=== PATIENT | male | born 1985 | race Caucasian/White ===

== ENCOUNTER 2019-05-16 13:02 | Emergency (ER) | payer BC, SELFPAY ==
[2019-05-16 13:06] VITALS: BP 137/84; PULSE 92; RESP 18; O2SAT 96; BMI 27.8
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
[2019-05-16] MEDS: HYDROcodone-acetaminophen 7.5-325 mg Tablet 1 TAB PO (15:27)
[2019-05-16] MEDS: fluorescein 1 mg Strip EYE-RIGHT (15:30)
[2019-05-16] MEDS: eye irrigation 30 mL Btl EYE-BOTH (15:30)
[2019-05-16] MEDS: tetracaine 0.5% Op Soln 4 mL Btl 1 DROP EYE-RIGHT (17:11)
[2019-05-16 17:26] VITALS: BP 126/74; PULSE 80; RESP 18; O2SAT 97
== END 2019-05-16 17:26 | disposition home or self-care (01) ==
PROVIDERS: Emergency Provider Physician Assistant
DX: S05.01XA Injury of conjunctiva and corneal abrasion without foreign body, right eye, initial encounter (principal); X58.XXXA Exposure to other specified factors, initial encounter; F17.200 Nicotine dependence, unspecified, uncomplicated
CPT/HCPCS: 99281; 99283

== ENCOUNTER → 2019-08-08 15:45 | Outpatient (BNVA) | payer BC, SELFPAY | PROVIDERS: Visit Provider Psychiatry & Neurology Psychiatry | DX: F90.9 Attention-deficit hyperactivity disorder, unspecified type (principal); F19.10 Other psychoactive substance abuse, uncomplicated; Z87.820 Personal history of traumatic brain injury | CPT/HCPCS: 90846 ==

== ENCOUNTER → 2019-09-10 07:42 | Outpatient (BNVA) | payer BC, SELFPAY | PROVIDERS: Visit Provider Nurse Practitioner Psychiatric/Mental Health | DX: F19.10 Other psychoactive substance abuse, uncomplicated (principal); F39 Unspecified mood [affective] disorder; F41.9 Anxiety disorder, unspecified; Z51.81 Encounter for therapeutic drug level monitoring | CPT/HCPCS: 99212 ==

== ENCOUNTER → 2019-09-11 11:15 | Outpatient (BNVA) | payer BC, SELFPAY | PROVIDERS: Visit Provider Nurse Practitioner Psychiatric/Mental Health | DX: Z51.81 Encounter for therapeutic drug level monitoring (principal); Z03.89 Encounter for observation for other suspected diseases and conditions ruled out | CPT/HCPCS: 80053; 80061; 80306; 83036; 85025 ==

== ENCOUNTER → 2019-10-11 08:06 | Outpatient (BNVA) | payer BC, SELFPAY | PROVIDERS: Visit Provider Nurse Practitioner Psychiatric/Mental Health | DX: F19.10 Other psychoactive substance abuse, uncomplicated (principal); F39 Unspecified mood [affective] disorder; Z87.820 Personal history of traumatic brain injury | CPT/HCPCS: 99213 ==

== ENCOUNTER → 2020-01-03 08:43 | Outpatient (BNVA) | payer BC, SELFPAY | PROVIDERS: Visit Provider Nurse Practitioner Psychiatric/Mental Health | DX: F19.10 Other psychoactive substance abuse, uncomplicated (principal); F39 Unspecified mood [affective] disorder; Z91.14 Patient's other noncompliance with medication regimen; Z65.3 Problems related to other legal circumstances; F41.0 Panic disorder [episodic paroxysmal anxiety] | CPT/HCPCS: 99212 ==

== ENCOUNTER 2020-03-12 12:50 | Emergency (ER) | payer BC, SELFPAY ==
[2020-03-12 13:07] VITALS: BP 138/70; PULSE 81; RESP 18; TEMP 36.4; O2SAT 99; BMI 25.1
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
[2020-03-12] MEDS: ketorolac 60 mg/2 mL INJ IM (14:58)
[2020-03-12] MEDS: tetanus-dipt-pertussis 0.5 mL SDV IM (14:59)
[2020-03-12 15:04] VITALS: BP 126/87; PULSE 80; RESP 14; O2SAT 99
== END 2020-03-12 15:05 | disposition home or self-care (01) ==
PROVIDERS: Emergency Provider Physician Assistant
DX: L03.115 Cellulitis of right lower limb (principal); S06.0X0A Concussion without loss of consciousness, initial encounter; F17.210 Nicotine dependence, cigarettes, uncomplicated; Z23 Encounter for immunization; W21.11XA Struck by baseball bat, initial encounter
CPT/HCPCS: 12345; 70450; 90715; 96372; 99281; 99283; J1885

== ENCOUNTER 2020-07-17 13:21 | Emergency (ER) | payer BC, SELFPAY ==
[2020-07-17 13:40] VITALS: BP 167/90; PULSE 69; RESP 18; TEMP 36.2; O2SAT 100; BMI 28.3
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
--- NOTE | 2020-07-17 14:20 | W.ED.HEATRA ---
Documented by User: Christiano Coles DO 07/18/20 16:20 HPI - Head Injury General: Chief complaint: Head Injury Stated complaint: FELL TRIMMING TREE: FACE/L HIP LAC,L SIDE PAIN Time Seen by Provider: 07/17/20 14:07 History of Present Illness: HPI Narrative: 35-year-old male who is using a bucket truck trimming some trees and he fell out of the tree. He states he is about 30 feet up he had some objects on the way down there was some loss of consciousness. His was present but cannot give much for details he is laceration above his right eye significant abrasion on his left hip. He notes that he had gross hematuria when he urinated after this event while in route to the hospital. Is complaining of some neck and shoulder pain on the left as well. MD Complaint: head injury and fall Onset (ago): minute(s) Mechanism of Injury: fall and work related injury Place: work Loss of Consciousness: yes Severity: moderate Quality: aching Associated symptoms: Reports confusion; Deny amnesia, nausea, neck pain, numbness, syncope, tingling, vertigo, visual changes, vomiting or weakness Review of Systems Const: Denies: fever(s), chills, body aches, change in appetite, fatigue or malaise ENMT: Denies: throat pain, ear or mastoid pain, nasal discharge or nasal congestion Card: Denies: syncope Resp: Denies: dyspnea, productive cough or non-productive cough GI: Denies: nausea or vomiting : Denies: flank pain, dysuria, urinary frequency or urinary urgency Musc: Denies: neck pain Skin/Breast: Denies: rash or pruritus Neuro: Reports: confusion; Denies: vertigo PFSH ED PFSH: Medical History (Updated 07/17/20 @ 17:10 by Christiano Coles DO) Unspecified episodic mood disorder Surgical History H/O sinus surgery History of ear surgery Social History Smoking and tobacco status: current every day smoker Physical Exam Const: COMMON NORMALS: no acute distress GENERAL APPEARANCE: cooperative and comfortable ORIENTATION/CONSCIOUSNESS: Yes awake, Yes oriented to person, Yes oriented to place and Yes oriented to time HENMT: COMMON NORMALS: normocephalic and hearing grossly normal bilaterally HEAD & SCALP: normocephalic OTHER: Full-thickness laceration to the right supraorbital ridge Neck/C-Spine: COMMON NORMALS: no JVD Resp: COMMON NORMALS: normal respiratory effort, No retractions, No use of accessory muscles and clear to auscultation bilaterally AUSCULTATION: clear to auscultation bilaterally Cardio: COMMON NORMALS: no JVD, regular rate, regular rhythm and No murmurs present (Cardio) RATE: regular rate RHYTHM: regular rhythm GI: COMMON NORMALS: Soft to palpation and No hepatosplenomegaly present AUSCULTATION: Yes normoactive bowel sounds PALPATION: Yes Soft to palpation, No Tenderness to palpation present (GI), No Guarding due to palpation present (GI) and Yes No hepatosplenomegaly present Extremity: COMMON NORMALS: normal to inspection, capillary refill normal, no clubbing, cyanosis or edema, no calf tenderness and no pedal edema Neuro: SENSORIUM/ORIENTATION: Yes oriented to person, Yes oriented to place and Yes oriented to time Skin: COMMON NORMALS: no rashes or lesions noted GENERAL SKIN EXAM: no rashes or lesions noted Course Vital Signs: Vital signs: Vital Signs Temperature 97.1 F L 07/17/20 13:40 Pulse Rate 98 07/17/20 17:30 Respiratory Rate 16 07/17/20 17:30 Blood Pressure 127/71 07/17/20 17:30 Pulse Oximetry 97 07/17/20 17:30 MDM - Head Injury MDM Narrative: Medical decision making narrative: Reviewed findings with the patient. Imaging negative. We will go and discharge patient home he reported hematuria but there is no blood in the urine diclofenac to use as needed follow-up as needed sutures out in 7 to 10 days. Lab Data: Labs: Lab Results 07/17/20 07/17/20 07/17/20 Range/Units 15:00 15:00 16:46 WBC 11.9 H (4.0-10.0) 10^3/ uL RBC 4.63 (4.1-5.3) 10^6/u L Hgb 13.4 (11.7-16.6) g/dL Hct 41.2 L (42.0-52.0) % MCV 89.0 (80-94) fL MCH 28.9 (28.0-34.0) pg MCHC 32.5 (30.0-36.0) g/dL RDW 13.6 (12.1-15.1) % Plt Count 205 (130-400) 10^3/c mm MPV 9.7 (7.4-10.4) fL Neut % (Auto) 68.1 % Lymph % (Auto) 20.0 % [place] % (Auto) 10.6 % Eos % (Auto) 0.6 % Baso % (Auto) 0.4 % Neut # (Auto) 8.11 H (1.8-7.7) 10^3/u L Lymph # (Auto) 2.4 (0.8-4.8) 10^3/u L [place] # (Auto) 1.3 H (0.2-0.9) 10^3/u L Eos # (Auto) 0.1 (0.0-0.8) 10^3/u L Baso # (Auto) 0.1 (0.0-0.1) 10^3/u L Nucleated RBC % (a uto) 0 % Nucleated RBCs # 0.0 /100WBC Sodium 142 (136-145) mmol/L Potassium 4.2 (3.5-5.1) mmol/L Chloride 104 (98-107) mmol/L Carbon Dioxide 28 (22-29) mmol/L Anion Gap 14.2 (5-19) BUN 13 (6-20) mg/dL Creatinine 1.0 (0.7-1.2) mg/dL GFR Calculation 85.5 L (90-130) mL/min Glucose 98 (65-115) mg/dL Calculated Osmolal ity 294 (285-295) mOsm/k g Calcium 9.2 (8.5-10.5) mg/dL Total Bilirubin 0.4 (0.15-1.2) mg/dL AST 46 H (0-40) U/L ALT 37 (0-41) U/L Alkaline Phosphata se 79 (40-130) IU/L Total Protein 7.9 (6.6-8.7) g/dL Albumin 5.0 (3.5-5.2) g/dL Globulin 2.9 (1.3-4.6) g/dL Urine Color Yellow (Yellow) Urine Appearance Hazy A (CLEAR) Urine pH 5 (5-7) Ur Specific Gravit y 1.015 (1.005-1.030) Urine Protein Neg (Negative) Urine Glucose (UA) Norm (Normal) Urine Ketones Negative (Negative) Urine Blood Neg (Negative) Urine Nitrate Negative (Negative) Urine Bilirubin Neg (Negative) Urine Urobilinogen Norm (Negative) mg/dL Ur Leukocyte Almita ase Negative (Negative) Urine RBC 0-4 H (0-2) /hpf Urine WBC None (0-5) /hpf Ur Squamous Epith Cells 0-4 H (0-5) /hpf Amorphous Sediment Not Reportable Urine Bacteria 1+ H (NONE) /hpf Hyaline Casts 25-40 H /lpf Discharge Plan Discharge Patient Disposition: Home Clinical Impression: Fall, Laceration Condition: Stable Prescriptions: New diclofenac sodium 75 mg tablet,delayed release (DR/EC) 75 mg PO Q12H PRN (Reason: pain) Qty: 20 RF: 0 Discharge Orders: Discharge ED (Routine); Ordered 07/17/20 Ordered By: Christiano Coles Patient Instructions: Opioid Safety Activity Restrictions/Additional Instructions: Sutures out in 5 to 7 days Coding Level of Care Code ED Sponsorship Coordinator for Chg Fwd Exam Comprehensive Documented by User: YOSELIN Jeffery 07/17/20 17:27 HPI - Head Injury General: Chief complaint: Head Injury Stated complaint: FELL TRIMMING TREE: FACE/L HIP LAC,L SIDE PAIN Time Seen by Provider: 07/17/20 14:07 PFSH ED PFSH: Medical History (Updated 07/17/20 @ 17:10 by Christiano Coles DO) Unspecified episodic mood disorder Surgical History H/O sinus surgery History of ear surgery Social History Smoking and tobacco status: current every day smoker Procedures Laceration Laceration 1: Site: face (rt eyebrow) Side (If applicable): right Size (cm): 2.5 Description: linear and stellate Depth: simple, single layer Local Anesthetic: lidocaine 1% and with epi Amount of anesthesia used (mL): 4 Pre-repair: wound explored, irrigated extensively, deep structures intact and extensive debridement Skin layer closed with: nylon Size (cm): 5-0 Number of sutures: 6 Technique: simple, interrupted Laceration 2: Site: other (lower left lateral torso) Side (If applicable): left Size (cm): 1 Description: linear Depth: simple, single layer and [id number] Local Anesthetic: lidocaine 1% and with epi Amount of anesthesia used (mL): 5 Pre-repair: wound explored, irrigated extensively, deep structures intact and extensive debridement Skin layer closed with: nylon Size (cm): other (2) Number of sutures: 2 Technique: simple, interrupted Course Vital Signs: Vital signs: Vital Signs Temperature 97.1 F L 07/17/20 13:40 Pulse Rate 98 07/17/20 17:30 Respiratory Rate 16 07/17/20 17:30 Blood Pressure 127/71 07/17/20 17:30 Pulse Oximetry 97 07/17/20 17:30 MDM - Head Injury Lab Data: Labs: Lab Results 07/17/20 07/17/20 07/17/20 Range/Units 15:00 15:00 16:46 WBC 11.9 H (4.0-10.0) 10^3/ uL RBC 4.63 (4.1-5.3) 10^6/u L Hgb 13.4 (11.7-16.6) g/dL Hct 41.2 L (42.0-52.0) % MCV 89.0 (80-94) fL MCH 28.9 (28.0-34.0) pg MCHC 32.5 (30.0-36.0) g/dL RDW 13.6 (12.1-15.1) % Plt Count 205 (130-400) 10^3/c mm MPV 9.7 (7.4-10.4) fL Neut % (Auto) 68.1 % Lymph % (Auto) 20.0 % [place] % (Auto) 10.6 % Eos % (Auto) 0.6 % Baso % (Auto) 0.4 % Neut # (Auto) 8.11 H (1.8-7.7) 10^3/u L Lymph # (Auto) 2.4 (0.8-4.8) 10^3/u L [place] # (Auto) 1.3 H (0.2-0.9) 10^3/u L Eos # (Auto) 0.1 (0.0-0.8) 10^3/u L Baso # (Auto) 0.1 (0.0-0.1) 10^3/u L Nucleated RBC % (a uto) 0 % Nucleated RBCs # 0.0 /100WBC Sodium 142 (136-145) mmol/L Potassium 4.2 (3.5-5.1) mmol/L Chloride 104 (98-107) mmol/L Carbon Dioxide 28 (22-29) mmol/L Anion Gap 14.2 (5-19) BUN 13 (6-20) mg/dL Creatinine 1.0 (0.7-1.2) mg/dL GFR Calculation 85.5 L (90-130) mL/min Glucose 98 (65-115) mg/dL Calculated Osmolal ity 294 (285-295) mOsm/k g Calcium 9.2 (8.5-10.5) mg/dL Total Bilirubin 0.4 (0.15-1.2) mg/dL AST 46 H (0-40) U/L ALT 37 (0-41) U/L Alkaline Phosphata se 79 (40-130) IU/L Total Protein 7.9 (6.6-8.7) g/dL Albumin 5.0 (3.5-5.2) g/dL Globulin 2.9 (1.3-4.6) g/dL Urine Color Yellow (Yellow) Urine Appearance Hazy A (CLEAR) Urine pH 5 (5-7) Ur Specific Gravit y 1.015 (1.005-1.030) Urine Protein Neg (Negative) Urine Glucose (UA) Norm (Normal) Urine Ketones Negative (Negative) Urine Blood Neg (Negative) Urine Nitrate Negative (Negative) Urine Bilirubin Neg (Negative) Urine Urobilinogen Norm (Negative) mg/dL Ur Leukocyte Almita ase Negative (Negative) Urine RBC 0-4 H (0-2) /hpf Urine WBC None (0-5) /hpf Ur Squamous Epith Cells 0-4 H (0-5) /hpf Amorphous Sediment Not Reportable Urine Bacteria 1+ H (NONE) /hpf Hyaline Casts 25-40 H /lpf Discharge Plan Discharge Patient Disposition: Home Clinical Impression: Fall, Laceration Condition: Stable Prescriptions: New diclofenac sodium 75 mg tablet,delayed release (DR/EC) 75 mg PO Q12H PRN (Reason: pain) Qty: 20 RF: 0 Discharge Orders: Discharge ED (Routine); Ordered 07/17/20 Ordered By: Christiano Coles Patient Instructions: Opioid Safety Activity Restrictions/Additional Instructions: Sutures out in 5 to 7 days Coding Level of Care Code ED Sponsorship Coordinator for Rickey Fwd Exam Comprehensive
[2020-07-17] MEDS: HYDROcodone-acetaminophen 5-325 mg Tablet 1 TAB PO (15:00)
[2020-07-17] MEDS: tetanus-dipt-pertussis 0.5 mL SDV IM (15:02)
[2020-07-17 15:05] VITALS: BP 127/77; PULSE 71; O2SAT 100
--- NOTE | 2020-07-17 15:18 | PC.NURSE ---
CHIEF OF HOSPITAL MEDICINE at bedside to do sutures. wounds cleaned with soup and water
[2020-07-17 15:20] LABS: Basophils # 0.1 10^3/uL (0.0-0.1); Basophils % 0.4 %; Eosinophils # 0.1 10^3/uL (0.0-0.8); Eosinophils % 0.6 %; Hematocrit 41.2 % (42.0-52.0); Hemoglobin 13.4 g/dL (11.7-16.6); Lymphocytes # 2.4 10^3/uL (0.8-4.8); Mean Corpuscular HGB Conc 32.5 g/dL (30.0-36.0); Mean Corpuscular Hemoglobin 28.9 pg (28.0-34.0); Mean Platelet Volume 9.7 fL (7.4-10.4); Monocytes # 1.3 10^3/uL (0.2-0.9); Monocytes % 10.6 %; Neutrophils # 8.11 10^3/uL (1.8-7.7); Neutrophils % 68.1 %; Nucleated Red Blood Cells % 0 %; Platelet Count 205 10^3/cmm (130-400); Red Blood Count 4.63 10^6/uL (4.1-5.3); Red Cell Distribution Width 13.6 % (12.1-15.1); White Blood Count 11.9 10^3/uL (4.0-10.0)
[2020-07-17 15:30] LABS: Alanine Aminotransferase 37 U/L (0-41); Alkaline Phosphatase 79 IU/L (40-130); Anion Gap 14.2 (5-19); Aspartate Amino Transferase 46 U/L (0-40); Blood Urea Nitrogen 13 mg/dL (6-20); Calcium 9.2 mg/dL (8.5-10.5); Carbon Dioxide 28 mmol/L (22-29); Chloride 104 mmol/L (98-107); Globulin 2.9 g/dL (1.3-4.6); Glomerular Filtration Rate 85.5 mL/min (90-130); Glucose 98 mg/dL (65-115); Osmolality Calculated 294 mOsm/kg (285-295); Potassium 4.2 mmol/L (3.5-5.1); Sodium 142 mmol/L (136-145); Total Bilirubin 0.4 mg/dL (0.15-1.2); Total Protein 7.9 g/dL (6.6-8.7)
[2020-07-17 16:56] LABS: Urine Appearance Hazy (CLEAR); Urine Color Yellow (Yellow)
[2020-07-17 16:57] LABS: Add Urine Microscopic? YES; Bilirubin Urine Neg (Negative); Blood Urine Neg (Negative); Glucose Urine UA Norm (Normal); Ketones Urine Negative (Negative); Leukocyte Esterase Urine Negative (Negative); Nitrate Urine Negative (Negative); Protein Urine Neg (Negative); Specific Gravity, Urine 1.015 (1.005-1.030); Urobilinogen Urine Norm (Negative); pH Urine 5 (5-7)
[2020-07-17 17:05] LABS: Hyaline Casts Urine 25-40 /lpf
[2020-07-17 17:06] LABS: Bacteria Urine 1+ /hpf; RBC Urine 0-4 /hpf (0-2); Squamous Epithelial Cell Urine 0-4 /hpf (0-5)
[2020-07-17 17:30] VITALS: BP 127/71; PULSE 98; RESP 16; O2SAT 97
--- NOTE | 2020-07-23 11:42 | PC.NURSE ---
F/U visit today to remove sutures from right eye brow and left lateral side. Site cleaned and removed 6 sutures on eyebrow. Not able to remove sutures on left lateral side. Dried hard scabs encased sutures. Advised to soften scab and return when the hard scab is softened.
== END 2020-07-17 17:32 | disposition home or self-care (01) ==
PROVIDERS: Emergency Provider Family Medicine
DX: S01.111A Laceration without foreign body of right eyelid and periocular area, initial encounter (principal); S31.114A Laceration without foreign body of abdominal wall, left lower quadrant without penetration into peritoneal cavity, initial encounter; F17.210 Nicotine dependence, cigarettes, uncomplicated; W14.XXXA Fall from tree, initial encounter; Z23 Encounter for immunization
CPT/HCPCS: 12001; 12011; 36415; 70450; 71250; 72125; 74176; 80053; 81001; 85025; 90471; 90715; 99283

== ENCOUNTER → 2020-07-29 09:07 | Outpatient (BNVA) | payer BC, SELFPAY | PROVIDERS: Visit Provider Nurse Practitioner Psychiatric/Mental Health | DX: F39 Unspecified mood [affective] disorder (principal); F19.10 Other psychoactive substance abuse, uncomplicated; Z79.899 Other long term (current) drug therapy; Z91.14 Patient's other noncompliance with medication regimen | CPT/HCPCS: 99214 ==

== ENCOUNTER 2020-07-29 19:52 | Inpatient (IN) | payer BC, SELFPAY ==
[2020-07-29 19:54] VITALS: BP 148/89; PULSE 84; RESP 16; TEMP 36.6; O2SAT 96; BMI 30.7
--- NOTE | 2020-07-29 20:16 | W.ED.PSYCH ---
Documented by User: Bakari Shannon MD 07/29/20 21:55 HPI - Psych General: Chief Complaint: Psychiatric Symptoms Stated Complaint: SI Time Seen by Provider: 07/29/20 20:07 Source: patient and old records reviewed Limitations: altered mental status History of Present Illness: HPI Narrative: 35-year-old male presents via EMS with report of alcohol intoxication, suicidal ideation and homicidal ideation. When asked open-ended questions such as how can we help you today he reports I do not know, you are supposed to be a doctor, why do not you tell me? When asked further open-ended questions he replies similarly. Therefore direct questions had to be asked. Patient reports he just got out of longterm about 2 weeks ago. He told me that he wants to kill me and everyone around him. When asked why, he states he just feels angry. He does not express any explicit plan on how he is going to do so. He reports since he got out of longterm he's been fucking, drinking, and bitching . Pt has abrasions to left hand knuckles and small laceration to right dorsal wrist (doesn't look intentional self inflicted). He is willing to take some medicine for his anger/agitation. Review of Systems General: Reports: ROS unobtainable due to medical condition PFSH ED PFSH: Medical History (Updated 07/29/20 @ 23:06 by Grover Lewis MD) Unspecified episodic mood disorder Surgical History H/O sinus surgery History of ear surgery Social History Smoking and tobacco status: current every day smoker Physical Exam Const: COMMON NORMALS: average body habitus, alert and well nourished EXAM LIMITATIONS: altered mental status (intoxicated clinically) GENERAL APPEARANCE: well developed, disheveled and lethargic; not cooperative ORIENTATION/CONSCIOUSNESS: Yes lethargic HENMT: COMMON NORMALS: normocephalic, atraumatic, external ears normal and Normal external nose present HEAD & SCALP: normal to inspection, normocephalic and atraumatic FACE & SINUS: face symmetric NOSE: Normal external nose present EXTERNAL EAR: Yes external ears normal MOUTH: lip normal; moist mucous membranes not abnormal and no muffled voice Eye: COMMON NORMALS: EOMs intact bilaterally and negative for conjunctivae normal (injected) GENERAL EYE: appearance normal, both eyes and all related structures CONJUNCTIVA: No conjunctivae normal (injected) SCLERA: sclerae normal EOM: Yes Nystagmus present Neck/C-Spine: COMMON NORMALS: no JVD GENERAL: Yes normal visual inspection and Yes trachea midline Resp: COMMON NORMALS: normal respiratory effort, No use of accessory muscles and clear to auscultation bilaterally EFFORT & INSPECTION: Yes able to speak in complete sentences and Yes symmetric chest movement AUSCULTATION: clear to auscultation bilaterally Cardio: COMMON NORMALS: no JVD, regular rate and regular rhythm RATE: regular rate RHYTHM: regular rhythm PERIPHERAL PULSES: radial pulses present GI: COMMON NORMALS: Soft to palpation INSPECTION: Yes normal to inspection PALPATION: Yes Soft to palpation, No Tenderness to palpation present (GI) and No Guarding due to palpation present (GI) Back/Pelvis: COMMON NORMALS: thoraco-lumbar ROM normal Extremity: COMMON NORMALS: normal to inspection GENERAL: Yes normal exam except as noted Neuro: COMMON NORMALS: moves all extremities, no focal motor deficits and no sensory deficits noted SENSORIUM/ORIENTATION: Yes alert and Yes lethargic Psych: APPEARANCE: Yes unkempt ATTITUDE: Yes uncooperative and Yes agitated ACTIVITY/MOTOR BEHAVIOR: Yes appropriate eye contact, Yes psychomotor slowing and Yes disorganized behavior SPEECH: Yes slurred MOOD & AFFECT: Yes Labile affect present THOUGHT PROCESS: Other thought process findings present (intoxicated--lets me direct conversation) THOUGHT CONTENT: Yes Suicidality present and Yes Homicidality present ATTENTION/CONCENTRATION: Yes attention grossly intact MEMORY/COGNITION: Yes memory grossly impaired INSIGHT: Poor insight present (Psych) JUDGEMENT: Poor judgement present (Psych) Skin: COMMON NORMALS: no rashes or lesions noted, turgor normal and no jaundice GENERAL SKIN EXAM: no rashes or lesions noted and turgor normal Face to Face: Restrn/Seclusion Events leading up to initiation: Verbalizing threat to self or others Evaluation of patient's immediate situation: No signs of physical distress Patient reaction since intervention applied: De-escalation/no displays of violent/destructive behavior Course Vital Signs: Vital signs: Vital Signs Temperature 97.9 F 07/29/20 19:54 Pulse Rate 70 07/29/20 22:34 Respiratory Rate 16 07/29/20 19:54 Blood Pressure 108/67 07/29/20 22:34 Pulse Oximetry 97 07/29/20 22:34 MDM - Psych MDM Narrative: Medical decision making narrative: This is a clinically intoxicated 35-year-old male with a history of substance abuse and psychiatric disease. He has vague suicidal and homicidal statements. During my conversation with him I can actually get him to laugh and lighten his mood. He is so intoxicated now that I cannot rely on his history. Patient is willing to cooperate with blood work and to take a medication for anxiolysis. As long as the patient remains cooperative will review labs and allow him to metabolize and reassess. Lab Data: Labs: Lab Results 07/29/20 07/29/20 07/29/20 Range/Units 20:03 20:03 20:15 WBC 8.0 (4.0-10.0) 10^3/ uL RBC 4.17 (4.1-5.3) 10^6/u L Hgb 12.5 (11.7-16.6) g/dL Hct 37.2 L (42.0-52.0) % MCV 89.2 (80-94) fL MCH 30.0 (28.0-34.0) pg MCHC 33.6 (30.0-36.0) g/dL RDW 13.6 (12.1-15.1) % Plt Count 218 (130-400) 10^3/c mm MPV 10.0 (7.4-10.4) fL Neut % (Auto) 66.6 % Lymph % (Auto) 21.9 % [place] % (Auto) 8.7 % Eos % (Auto) 0.9 % Baso % (Auto) 0.5 % Neut # (Auto) 5.36 (1.8-7.7) 10^3/u L Lymph # (Auto) 1.8 (0.8-4.8) 10^3/u L [place] # (Auto) 0.7 (0.2-0.9) 10^3/u L Eos # (Auto) 0.1 (0.0-0.8) 10^3/u L Baso # (Auto) 0.0 (0.0-0.1) 10^3/u L Nucleated RBC % (a uto) 0 % Nucleated RBCs # 0.0 /100WBC Sodium (136-145) mmol/L Potassium (3.5-5.1) mmol/L Chloride (98-107) mmol/L Carbon Dioxide (22-29) mmol/L Anion Gap (5-19) BUN (6-20) mg/dL Creatinine (0.7-1.2) mg/dL GFR Calculation (90-130) mL/min Glucose (65-115) mg/dL Calculated Osmolal ity (285-295) mOsm/k g Calcium (8.5-10.5) mg/dL Total Bilirubin (0.15-1.2) mg/dL AST (0-40) U/L ALT (0-41) U/L Alkaline Phosphata se (40-130) IU/L Total Protein (6.6-8.7) g/dL Albumin (3.5-5.2) g/dL Globulin (1.3-4.6) g/dL Urine Color Yellow (Yellow) Urine Appearance Clear (CLEAR) Urine pH 5 (5-7) Ur Specific Gravit y 1.005 (1.005-1.030) Urine Protein Neg (Negative) Urine Glucose (UA) Norm (Normal) Urine Ketones Negative (Negative) Urine Blood Neg (Negative) Urine Nitrate Negative (Negative) Urine Bilirubin Neg (Negative) Urine Urobilinogen Norm (Negative) mg/dL Ur Leukocyte Almita ase Negative (Negative) Salicylates (3-10) mg/dL Urine Opiates Scre en Negative (Negative) ng/mL Acetaminophen (10-30) ug/mL Ur Barbiturates Sc reen Negative (Negative) ng/mL Ur Phencyclidine S crn Negative (Negative) ng/mL Ur Amphetamines Sc reen Negative (Negative) ng/mL U Benzodiazepines Scrn Negative (Negative) ng/mL Urine Cocaine Scre en Negative (Negative) ng/mL U Marijuana (THC) Screen Negative (Negative) ng/mL Ethyl Alcohol (0-10) mg/dL 07/29/20 Range/Units 20:15 WBC (4.0-10.0) 10^3/ uL RBC (4.1-5.3) 10^6/u L Hgb (11.7-16.6) g/dL Hct (42.0-52.0) % MCV (80-94) fL MCH (28.0-34.0) pg MCHC (30.0-36.0) g/dL RDW (12.1-15.1) % Plt Count (130-400) 10^3/c mm MPV (7.4-10.4) fL Neut % (Auto) % Lymph % (Auto) % [place] % (Auto) % Eos % (Auto) % Baso % (Auto) % Neut # (Auto) (1.8-7.7) 10^3/u L Lymph # (Auto) (0.8-4.8) 10^3/u L [place] # (Auto) (0.2-0.9) 10^3/u L Eos # (Auto) (0.0-0.8) 10^3/u L Baso # (Auto) (0.0-0.1) 10^3/u L Nucleated RBC % (a uto) % Nucleated RBCs # /100WBC Sodium 138 (136-145) mmol/L Potassium 4.0 (3.5-5.1) mmol/L Chloride 105 (98-107) mmol/L Carbon Dioxide 25 (22-29) mmol/L Anion Gap 12.0 (5-19) BUN 9 (6-20) mg/dL Creatinine 0.7 (0.7-1.2) mg/dL GFR Calculation 129.1 (90-130) mL/min Glucose 120 H (65-115) mg/dL Calculated Osmolal ity 286 (285-295) mOsm/k g Calcium 8.3 L (8.5-10.5) mg/dL Total Bilirubin 0.2 (0.15-1.2) mg/dL AST 28 (0-40) U/L ALT 35 (0-41) U/L Alkaline Phosphata se 89 (40-130) IU/L Total Protein 6.7 (6.6-8.7) g/dL Albumin 4.2 (3.5-5.2) g/dL Globulin 2.5 (1.3-4.6) g/dL Urine Color (Yellow) Urine Appearance (CLEAR) Urine pH (5-7) Ur Specific Gravit y (1.005-1.030) Urine Protein (Negative) Urine Glucose (UA) (Normal) Urine Ketones (Negative) Urine Blood (Negative) Urine Nitrate (Negative) Urine Bilirubin (Negative) Urine Urobilinogen (Negative) mg/dL Ur Leukocyte Almita ase (Negative) Salicylates < 0.3 L (3-10) mg/dL Urine Opiates Scre en (Negative) ng/mL Acetaminophen < 5.0 L (10-30) ug/mL Ur Barbiturates Sc reen (Negative) ng/mL Ur Phencyclidine S crn (Negative) ng/mL Ur Amphetamines Sc reen (Negative) ng/mL U Benzodiazepines Scrn (Negative) ng/mL Urine Cocaine Scre en (Negative) ng/mL U Marijuana (THC) Screen (Negative) ng/mL Ethyl Alcohol 258 H (0-10) mg/dL Discharge Plan Discharge Patient Disposition: Admitted As Inpatient Clinical Impression: Suicidal ideation Alcohol intoxication Qualifiers: Complication of substance-induced condition: with delirium Qualified Code(s): F10.921 - Alcohol use, unspecified with intoxication delirium Condition: Stable Coding Level of Care Code ED Geoscience Specialist for Chg Fwd Exam Comprehensive Documented by User: Grover Lewis MD 07/29/20 23:10 HPI - Psych General: Chief Complaint: Psychiatric Symptoms Stated Complaint: SI Time Seen by Provider: 07/29/20 20:07 [facility] ED PFSH: Medical History (Updated 07/29/20 @ 23:06 by Grover Lewis MD) Unspecified episodic mood disorder Surgical History H/O sinus surgery History of ear surgery Social History Smoking and tobacco status: current every day smoker Course Vital Signs: Vital signs: Vital Signs Temperature 97.9 F 07/29/20 19:54 Pulse Rate 70 07/29/20 22:34 Respiratory Rate 16 07/29/20 19:54 Blood Pressure 108/67 07/29/20 22:34 Pulse Oximetry 97 07/29/20 22:34 MDM - Psych MDM Narrative: Medical decision making narrative: Patient presents for suicidal homicidal ideations along with alcohol tox Acacian. Patient placed on a 96-hour hold and I spoke to psychiatrist and I will admit. Patient has been stable while here. Lab Data: Labs: Lab Results 07/29/20 07/29/20 07/29/20 Range/Units 20:03 20:03 20:15 WBC 8.0 (4.0-10.0) 10^3/ uL RBC 4.17 (4.1-5.3) 10^6/u L Hgb 12.5 (11.7-16.6) g/dL Hct 37.2 L (42.0-52.0) % MCV 89.2 (80-94) fL MCH 30.0 (28.0-34.0) pg MCHC 33.6 (30.0-36.0) g/dL RDW 13.6 (12.1-15.1) % Plt Count 218 (130-400) 10^3/c mm MPV 10.0 (7.4-10.4) fL Neut % (Auto) 66.6 % Lymph % (Auto) 21.9 % [place] % (Auto) 8.7 % Eos % (Auto) 0.9 % Baso % (Auto) 0.5 % Neut # (Auto) 5.36 (1.8-7.7) 10^3/u L Lymph # (Auto) 1.8 (0.8-4.8) 10^3/u L [place] # (Auto) 0.7 (0.2-0.9) 10^3/u L Eos # (Auto) 0.1 (0.0-0.8) 10^3/u L Baso # (Auto) 0.0 (0.0-0.1) 10^3/u L Nucleated RBC % (a uto) 0 % Nucleated RBCs # 0.0 /100WBC Sodium (136-145) mmol/L Potassium (3.5-5.1) mmol/L Chloride (98-107) mmol/L Carbon Dioxide (22-29) mmol/L Anion Gap (5-19) BUN (6-20) mg/dL Creatinine (0.7-1.2) mg/dL GFR Calculation (90-130) mL/min Glucose (65-115) mg/dL Calculated Osmolal ity (285-295) mOsm/k g Calcium (8.5-10.5) mg/dL Total Bilirubin (0.15-1.2) mg/dL AST (0-40) U/L ALT (0-41) U/L Alkaline Phosphata se (40-130) IU/L Total Protein (6.6-8.7) g/dL Albumin (3.5-5.2) g/dL Globulin (1.3-4.6) g/dL Urine Color Yellow (Yellow) Urine Appearance Clear (CLEAR) Urine pH 5 (5-7) Ur Specific Gravit y 1.005 (1.005-1.030) Urine Protein Neg (Negative) Urine Glucose (UA) Norm (Normal) Urine Ketones Negative (Negative) Urine Blood Neg (Negative) Urine Nitrate Negative (Negative) Urine Bilirubin Neg (Negative) Urine Urobilinogen Norm (Negative) mg/dL Ur Leukocyte Almita ase Negative (Negative) Salicylates (3-10) mg/dL Urine Opiates Scre en Negative (Negative) ng/mL Acetaminophen (10-30) ug/mL Ur Barbiturates Sc reen Negative (Negative) ng/mL Ur Phencyclidine S crn Negative (Negative) ng/mL Ur Amphetamines Sc reen Negative (Negative) ng/mL U Benzodiazepines Scrn Negative (Negative) ng/mL Urine Cocaine Scre en Negative (Negative) ng/mL U Marijuana (THC) Screen Negative (Negative) ng/mL Ethyl Alcohol (0-10) mg/dL 07/29/20 Range/Units 20:15 WBC (4.0-10.0) 10^3/ uL RBC (4.1-5.3) 10^6/u L Hgb (11.7-16.6) g/dL Hct (42.0-52.0) % MCV (80-94) fL MCH (28.0-34.0) pg MCHC (30.0-36.0) g/dL RDW (12.1-15.1) % Plt Count (130-400) 10^3/c mm MPV (7.4-10.4) fL Neut % (Auto) % Lymph % (Auto) % [place] % (Auto) % Eos % (Auto) % Baso % (Auto) % Neut # (Auto) (1.8-7.7) 10^3/u L Lymph # (Auto) (0.8-4.8) 10^3/u L [place] # (Auto) (0.2-0.9) 10^3/u L Eos # (Auto) (0.0-0.8) 10^3/u L Baso # (Auto) (0.0-0.1) 10^3/u L Nucleated RBC % (a uto) % Nucleated RBCs # /100WBC Sodium 138 (136-145) mmol/L Potassium 4.0 (3.5-5.1) mmol/L Chloride 105 (98-107) mmol/L Carbon Dioxide 25 (22-29) mmol/L Anion Gap 12.0 (5-19) BUN 9 (6-20) mg/dL Creatinine 0.7 (0.7-1.2) mg/dL GFR Calculation 129.1 (90-130) mL/min Glucose 120 H (65-115) mg/dL Calculated Osmolal ity 286 (285-295) mOsm/k g Calcium 8.3 L (8.5-10.5) mg/dL Total Bilirubin 0.2 (0.15-1.2) mg/dL AST 28 (0-40) U/L ALT 35 (0-41) U/L Alkaline Phosphata se 89 (40-130) IU/L Total Protein 6.7 (6.6-8.7) g/dL Albumin 4.2 (3.5-5.2) g/dL Globulin 2.5 (1.3-4.6) g/dL Urine Color (Yellow) Urine Appearance (CLEAR) Urine pH (5-7) Ur Specific Gravit y (1.005-1.030) Urine Protein (Negative) Urine Glucose (UA) (Normal) Urine Ketones (Negative) Urine Blood (Negative) Urine Nitrate (Negative) Urine Bilirubin (Negative) Urine Urobilinogen (Negative) mg/dL Ur Leukocyte Almita ase (Negative) Salicylates < 0.3 L (3-10) mg/dL Urine Opiates Scre en (Negative) ng/mL Acetaminophen < 5.0 L (10-30) ug/mL Ur Barbiturates Sc reen (Negative) ng/mL Ur Phencyclidine S crn (Negative) ng/mL Ur Amphetamines Sc reen (Negative) ng/mL U Benzodiazepines Scrn (Negative) ng/mL Urine Cocaine Scre en (Negative) ng/mL U Marijuana (THC) Screen (Negative) ng/mL Ethyl Alcohol 258 H (0-10) mg/dL Discharge Plan Discharge Patient Disposition: Admitted As Inpatient Clinical Impression: Suicidal ideation Alcohol intoxication Qualifiers: Complication of substance-induced condition: with delirium Qualified Code(s): F10.921 - Alcohol use, unspecified with intoxication delirium Condition: Stable Coding Level of Care Code ED Geoscience Specialist for Rickey Fwjosé miguel Exam Comprehensive
[2020-07-29 20:22] LABS: Add Urine Microscopic? NO; Charge for UA Resulting for Rev
[2020-07-29 20:24] LABS: Bilirubin Urine Neg (Negative); Blood Urine Neg (Negative); Glucose Urine UA Norm (Normal); Ketones Urine Negative (Negative); Leukocyte Esterase Urine Negative (Negative); Nitrate Urine Negative (Negative); Protein Urine Neg (Negative); Specific Gravity, Urine 1.005 (1.005-1.030); Urine Appearance Clear (CLEAR); Urine Color Yellow (Yellow); Urobilinogen Urine Norm (Negative); pH Urine 5 (5-7)
[2020-07-29 20:27] LABS: Basophils % 0.5 %; Eosinophils # 0.1 10^3/uL (0.0-0.8); Eosinophils % 0.9 %; Hematocrit 37.2 % (42.0-52.0); Hemoglobin 12.5 g/dL (11.7-16.6); Lymphocytes # 1.8 10^3/uL (0.8-4.8); Lymphocytes % 21.9 %; Mean Corpuscular HGB Conc 33.6 g/dL (30.0-36.0); Mean Corpuscular Volume 89.2 fL (80-94); Monocytes # 0.7 10^3/uL (0.2-0.9); Monocytes % 8.7 %; Neutrophils # 5.36 10^3/uL (1.8-7.7); Neutrophils % 66.6 %; Nucleated Red Blood Cells % 0 %; Platelet Count 218 10^3/cmm (130-400); Red Blood Count 4.17 10^6/uL (4.1-5.3); Red Cell Distribution Width 13.6 % (12.1-15.1)
[2020-07-29] MEDS: OLANZapine 10 mg ODT PO (20:27)
[2020-07-29 20:32] LABS: Amphetamines Screen Urine Negative (Negative); Barbiturates Screen Urine Negative (Negative); Benzodiazepines Screen Urine Negative (Negative); Cocaine Screen Urine Negative (Negative); Opiate Screen Urine Negative (Negative); PCP Screen Urine Negative (Negative); THC Screen Urine Negative (Negative)
[2020-07-29 20:42] LABS: Alanine Aminotransferase 35 U/L (0-41); Albumin Level 4.2 g/dL (3.5-5.2); Alcohol Level 258 mg/dL (0-10); Alkaline Phosphatase 89 IU/L (40-130); Aspartate Amino Transferase 28 U/L (0-40); Blood Urea Nitrogen 9 mg/dL (6-20); Calcium 8.3 mg/dL (8.5-10.5); Carbon Dioxide 25 mmol/L (22-29); Chloride 105 mmol/L (98-107); Globulin 2.5 g/dL (1.3-4.6); Glomerular Filtration Rate 129.1 mL/min (90-130); Glucose 120 mg/dL (65-115); Osmolality Calculated 286 mOsm/kg (285-295); Sodium 138 mmol/L (136-145); Total Bilirubin 0.2 mg/dL (0.15-1.2); Total Protein 6.7 g/dL (6.6-8.7)
[2020-07-29 20:43] LABS: Acetaminophen < 5.0 ug/mL (10-30); Salicylate < 0.3 mg/dL (3-10)
[2020-07-29 21:20] VITALS: BP 102/62; PULSE 70; O2SAT 96
[2020-07-29 22:34] VITALS: BP 108/67; PULSE 70; O2SAT 97
--- NOTE | 2020-07-29 22:42 | PC.NURSE ---
PSA states pt walked to corner of room and urinated in the floor. PSA stated that she tried to ask pt if he needed anything prior to this but pt would not acknowledge her
[2020-07-30 00:04] LABS: Alcohol Level 183 mg/dL (0-10)
[2020-07-30 00:57] VITALS: RESP 16
[2020-07-30 01:04] VITALS: BP 108/67; PULSE 70; RESP 16; TEMP 36.6
[2020-07-30] MEDS: acetaminophen 325 mg Tablet 650 MG PO (01:25)
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
[2020-07-30 06:00] VITALS: BP 112/65; PULSE 102; RESP 18; TEMP 36.4; O2SAT 96
[2020-07-30] MEDS: multivitamin therapeutic Tablet 1 TAB PO (08:40)
[2020-07-30] MEDS: thiamine 100 mg Tablet PO (08:40)
[2020-07-30] MEDS: folic acid 1 mg Tablet PO (08:40)
[2020-07-30 14:00] VITALS: BP 122/77; PULSE 75; RESP 16; TEMP 37.1; O2SAT 97
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
[2020-07-30 20:21] VITALS: BP 131/80; PULSE 80; RESP 17; TEMP 36.4; O2SAT 93
[2020-07-31 06:00] VITALS: BP 122/72; PULSE 77; RESP 17; TEMP 37.2; O2SAT 97
[2020-07-31] MEDS: folic acid 1 mg Tablet PO (08:28)
[2020-07-31] MEDS: multivitamin therapeutic Tablet 1 TAB PO (08:28)
[2020-07-31] MEDS: thiamine 100 mg Tablet PO (08:28)
[2020-07-31 14:00] VITALS: BP 131/84; PULSE 111; RESP 20; TEMP 36.9; O2SAT 96
--- NOTE | 2020-07-31 15:55 | PM.NPN ---
Subjective NPU Subjective: Interval history: Patient continues to state that he does not recall making suicidal or homicidal statements while intoxicated and denies any interval suicidal or homicidal ideation He denies any interval mood symptoms, denies any depressive symptoms although he does report some irritability about still being in the hospital and would like to leave Denies any problems with sleep Reports that his appetite is been good Continues to have poor insight and does not understand need for post discharge treatment although he does understand that he may benefit from alcohol and substance counseling Per staff report, no interval behavioral disturbances Mental Status Exam MSE Comments: Sitting up on his bed, shaved head, powell look on his face, cooperative with interview although only providing brief responses, good eye contact, tattoos uncovered skin areas Psychomotor activity is neither increased nor decreased, no agitation Speech is normal rate and volume, spontaneous, fair articulation, not pressured I am fine, somewhat constricted affect, not labile Alert and oriented to person, place, time Memory and concentration appear to be fair to intact per interview Thought process, linear, no flight of ideas Thought content, no delusions, no hallucinations, no suicidal or homicidal ideation Insight and judgment appear to be fair Vitals/I&O/Wt Last Vital Signs Temp 98.9 F 07/31/20 06:00 Pulse 77 07/31/20 06:00 Resp 17 07/31/20 06:00 BP 122/72 07/31/20 06:00 Pulse Ox 97 07/31/20 06:00 Weight last 48 hrs Weight 99.79 kg Data NPU : 07/29/20 20:15 07/29/20 20:15 A&P Assessment and plan (1) Alcohol intoxication: Status: Acute Qualifiers: Complication of substance-induced condition: with delirium Qualified Code(s): F10.921 - Alcohol use, unspecified with intoxication delirium (2) Suicidal ideation: Status: Acute (3) Problems related to other legal circumstances: Status: Chronic (4) Unspecified episodic mood disorder: Status: Chronic (5) History of concussion: Status: Acute (6) Polysubstance abuse: Status: Chronic Additional A&P Information Denies any interval suicidal or homicidal ideation and denies any interval depressive symptoms, reports some irritability, denies any psychotic symptoms although he does report prior to coming to the hospital that he was paranoid while intoxicated but does not currently have any paranoia CONTINUE current treatment, continue to monitor Involuntary Hold Information 96 Hour Hold: 96 Hour Involuntary Admission: Yes 96 Hour Hold Ending Date: 08/04/20 96 Hour Hold Ending Time: 23:03 Attestations NPU Medical Necessity Statement*: Patient continues to be on 96-hour hold for observation for any potential suicidal or homicidal ideation as well as coordination for safe discharge Coding Level of Care Code Acute Operations Inspector for Rickey Fwd Diagnoses Alcohol intoxication F10.921 Complication of substance-induced condition: with delirium Suicidal ideation R45.851 Problems related to other legal circumstances Z65.3 Unspecified episodic mood disorder F39 History of concussion Z87.820 Polysubstance abuse F19.10
[2020-07-31 20:32] VITALS: BP 107/60; PULSE 80; RESP 16; TEMP 36.9; O2SAT 96
[2020-08-01 05:38] VITALS: BP 96/62; PULSE 56; RESP 16; TEMP 36.7; O2SAT 97
[2020-08-01] MEDS: multivitamin therapeutic Tablet 1 TAB PO (08:06)
[2020-08-01] MEDS: thiamine 100 mg Tablet PO (08:06)
[2020-08-01] MEDS: folic acid 1 mg Tablet PO (08:06)
--- NOTE | 2020-08-01 08:58 | PC.RESP ---
SMOKING CESSATION INFORMATION SENT TO PATIENT.
[2020-08-01 14:00] VITALS: BP 126/89; PULSE 85; RESP 18; TEMP 36.8; O2SAT 96
--- NOTE | 2020-08-01 14:31 | P.PN_ITS ---
Subjective NPU Subjective: Interval history: Patient denies any interval mood symptoms, denies any depressive symptoms, denies any interval suicidal ideation Continues to report some irritability Continues to have poor insight into the events leading to his hospitalization as well as need for post discharge care Per staff report, no interval behavioral disturbances Mental Status Exam MSE Comments: Irritable but cooperative with interview, appropriately groomed and dressed, wearing hospital scrubs, good eye contact Psychomotor activity is neither increased nor decreased, no agitation Speech is normal rate and volume, spontaneous, fair articulation, not pressured I feel okay, full range, not labile Alert and oriented to person, place, time Memory and concentration appear to be fair to intact per interview Thought process, linear, no flight of ideas Thought content, no delusions, no hallucinations, no suicidal or homicidal ideation Insight and judgment appear to be fair Vitals/I&O/Wt Last Vital Signs Temp 98.1 F 08/01/20 05:38 Pulse 56 L 08/01/20 05:38 Resp 16 08/01/20 05:38 BP 96/62 08/01/20 05:38 Pulse Ox 97 08/01/20 05:38 Data NPU : 07/29/20 20:15 07/29/20 20:15 A&P Assessment and plan (1) Alcohol intoxication: Status: Acute Qualifiers: Complication of substance-induced condition: with delirium Qualified Code(s): F10.921 - Alcohol use, unspecified with intoxication delirium (2) Suicidal ideation: Status: Acute (3) Problems related to other legal circumstances: Status: Chronic (4) Unspecified episodic mood disorder: Status: Chronic (5) History of concussion: Status: Acute (6) Polysubstance abuse: Status: Chronic Additional A&P Information Patient continues to lack insight into the events leading to his hospitalization with concerns about untreated mood likely posing safety concerns and would benefit from continued observation for any return of suicidal or homicidal ideation. 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
[2020-08-01] MEDS: quetiapine XR (24HR) 50 mg Tablet 150 MG PO (20:15)
[2020-08-01 21:46] VITALS: BP 131/86; PULSE 74; RESP 17; TEMP 37; O2SAT 96
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
[2020-08-02 06:00] VITALS: BP 100/66; PULSE 68; RESP 16; TEMP 36.9
[2020-08-02] MEDS: multivitamin therapeutic Tablet 1 TAB PO (08:08)
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
[2020-08-02 10:25] VITALS: BP 100/66; PULSE 68; RESP 16; TEMP 36.9
== END 2020-08-02 11:07 | disposition home or self-care (01) | DRG 897 ==
LOC: ER 23:06 → NP 23:30
PROVIDERS: Emergency Medicine; Admitting Provider Psychiatry & Neurology Psychiatry; Emergency Provider Emergency Medicine; Visit Provider Psychiatry & Neurology Psychiatry
DX: F10.121 Alcohol abuse with intoxication delirium (principal); R45.851 Suicidal ideations; Y90.9 Presence of alcohol in blood, level not specified; R45.850 Homicidal ideations; Z81.8 Family history of other mental and behavioral disorders; F31.9 Bipolar disorder, unspecified; F90.9 Attention-deficit hyperactivity disorder, unspecified type; F17.210 Nicotine dependence, cigarettes, uncomplicated; Z65.3 Problems related to other legal circumstances; F19.10 Other psychoactive substance abuse, uncomplicated; Z87.820 Personal history of traumatic brain injury; F39 Unspecified mood [affective] disorder
CPT/HCPCS: 36415; 80053; 80306; 80307; 81003; 85025; 99285

== ENCOUNTER → 2020-08-28 07:53 | Outpatient (BNVA) | payer BC, SELFPAY | PROVIDERS: Visit Provider Nurse Practitioner Psychiatric/Mental Health | DX: F39 Unspecified mood [affective] disorder (principal); F19.10 Other psychoactive substance abuse, uncomplicated; Z91.14 Patient's other noncompliance with medication regimen | CPT/HCPCS: 99214 ==

== ENCOUNTER 2020-09-20 13:04 | Inpatient (IN) | payer BC, SELFPAY ==
[2020-09-20 13:07] VITALS: BP 124/73; PULSE 74; TEMP 36.8; O2SAT 100; BMI 27.8
--- NOTE | 2020-09-20 13:39 | ECG_ITS ---
[facility] Test Date: 2020-09-20 Pat Name: Brody Dwyer Department: Room: Gender: Male Pen Maker: : 1985 Requested By: Last Gallegos I Order Number: [id number] Carmelo MD: Kat Aguillon M.D. Measurements Intervals [place] Rate: 53 P: 71 IL: 145 QRS: 43 QRSD: 93 T: 46 QT: 448 QTc: 424 Interpretive Statements SINUS BRADYCARDIA No previous ECG available for comparison Electronically Signed On 09-21-2020 9:44:22 CDT by Kat Aguillon M.D. [id number]
--- NOTE | 2020-09-20 13:39 | XRR_ITS ---
PROCEDURE INFORMATION: Exam: XR Chest Exam date and time: 09/20/2020 1:39 PM Age: 35 years old Clinical indication: Pain; Chest pressure; Additional info: Cp TECHNIQUE: Imaging protocol: XR of the chest. Views: 1 view. COMPARISON: CT chest abd pel wo con 07/17/2020 2:48 PM FINDINGS: Lungs: Unremarkable. No consolidation. Pleural spaces: Unremarkable. No pleural effusion. No pneumothorax. Heart/Mediastinum: Unremarkable. No cardiomegaly. Bones/joints: Unremarkable. XR/XR chest 1V portable [id number] IMPRESSION: No acute findings.
[2020-09-20 13:51] VITALS: O2SAT 98
[2020-09-20] MEDS: LORazepam 2 mg/mL INJ 1 mL IM (14:17)
[2020-09-20] MEDS: ziprasidone 20 mg/mL SDV IM (14:18)
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
[2020-09-20 14:59] LABS: Basophils % 0.3 %; Eosinophils # 0.1 10^3/uL (0.0-0.8); Eosinophils % 1.1 %; Hematocrit 40.9 % (42.0-52.0); Hemoglobin 14.2 g/dL (11.7-16.6); Lymphocytes # 2.6 10^3/uL (0.8-4.8); Lymphocytes % 26.1 %; Mean Corpuscular HGB Conc 34.7 g/dL (30.0-36.0); Mean Corpuscular Hemoglobin 29.6 pg (28.0-34.0); Mean Corpuscular Volume 85.4 fL (80-94); Monocytes % 10.6 %; Neutrophils # 6.02 10^3/uL (1.8-7.7); Neutrophils % 61.5 %; Nucleated Red Blood Cells % 0 %; Platelet Count 233 10^3/cmm (130-400); Red Blood Count 4.79 10^6/uL (4.1-5.3); Red Cell Distribution Width 12.3 % (12.1-15.1); White Blood Count 9.8 10^3/uL (4.0-10.0)
[2020-09-20 15:10] LABS: Alanine Aminotransferase 25 U/L (0-41); Albumin Level 4.4 g/dL (3.5-5.2); Alkaline Phosphatase 98 IU/L (40-130); Anion Gap 18.1 (5-19); Aspartate Amino Transferase 34 U/L (0-40); Blood Urea Nitrogen 16 mg/dL (6-20); Calcium 9.3 mg/dL (8.5-10.5); Carbon Dioxide 20 mmol/L (22-29); Chloride 97 mmol/L (98-107); Globulin 2.7 g/dL (1.3-4.6); Glomerular Filtration Rate 85.5 mL/min (90-130); Glucose 102 mg/dL (65-115); Osmolality Calculated 275 mOsm/kg (285-295); Potassium 3.1 mmol/L (3.5-5.1); Sodium 132 mmol/L (136-145); Total Bilirubin 0.8 mg/dL (0.15-1.2); Total Protein 7.1 g/dL (6.6-8.7)
[2020-09-20 15:11] LABS: Troponin(5th) Baseline 6 ng/L (0-15)
[2020-09-20 15:19] LABS: Acetaminophen < 5.0 ug/mL (10-30); Alcohol Level < 10 mg/dL (0-10); Salicylate < 0.3 mg/dL (3-10)
--- NOTE | 2020-09-20 15:39 | ECG_ITS ---
[facility] Test Date: 2020-09-20 Pat Name: Brody Dwyer Department: Room: Gender: Male Shoe Treer: : 1985 Requested By: Last Gallegos I Order Number: [id number] Carmelo MD: Kat Aguillon M.D. Measurements Intervals [place] Rate: 66 P: 67 PA: 154 QRS: 22 QRSD: 100 T: 21 QT: 415 QTc: 436 Interpretive Statements SINUS RHYTHM WITH MARKED SINUS ARRHYTHMIA WARNING: DATA QUALITY MAY AFFECT INTERPRETATION Compared to ECG 09/20/2020 13:47:50 Sinus bradycardia no longer present Electronically Signed On 09-21-2020 9:48:30 CDT by Kat Aguillon M.D. [email or web address].[email or web address]/store/[id number]
--- NOTE | 2020-09-20 15:40 | PC.NURSE ---
TONE Winters returned to pharmacy after verbal discountiued.
--- NOTE | 2020-09-20 15:42 | PC.NURSE ---
Pts IV removed no redness or swelling noted.
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
[2020-09-20 16:32] LABS: Amphetamines Screen Urine Positive (Negative); Barbiturates Screen Urine Negative (Negative); Benzodiazepines Screen Urine Negative (Negative); Cocaine Screen Urine Negative (Negative); Opiate Screen Urine Negative (Negative); PCP Screen Urine Negative (Negative); THC Screen Urine Negative (Negative)
[2020-09-20 16:40] VITALS: BP 111/55; PULSE 82; RESP 18; O2SAT 97
[2020-09-20 16:55] LABS: Troponin 5 2HR Delta 0 ABS# (0-10)
[2020-09-20 16:56] LABS: Add Urine Microscopic? YES; Bilirubin Urine 1+ (Negative); Blood Urine Neg (Negative); Glucose Urine UA Norm (Normal); Ketones Urine 2+ (Negative); Leukocyte Esterase Urine Negative (Negative); Nitrate Urine Negative (Negative); Protein Urine Neg (Negative); Specific Gravity, Urine 1.015 (1.005-1.030); Urine Appearance SL Hazy (CLEAR); Urine Color Yellow (Yellow); Urobilinogen Urine 1 mg/dL (Negative); pH Urine 7 (5-7)
[2020-09-20 17:00] LABS: Bacteria Urine TRACE /hpf; Mucus Urine 1+ /hpf; WBC Urine RARE /hpf (0-5)
[2020-09-20 17:03] LABS: Add Urine Culture? No
[2020-09-20 17:04] VITALS: PULSE 79; O2SAT 97
[2020-09-20 20:43] VITALS: RESP 15
[2020-09-20 20:49] LABS: Troponin 5 6HR Delta 0 ng/L (0-12)
[2020-09-21 06:00] VITALS: BP 112/60; PULSE 62; RESP 16; TEMP 36.9; O2SAT 97
[2020-09-21 14:00] VITALS: BP 108/65; PULSE 72; RESP 17; TEMP 36.9; O2SAT 98
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
[2020-09-21 21:43] VITALS: BP 92/57; PULSE 17; RESP 17; TEMP 36.7; O2SAT 94
[2020-09-22 06:00] VITALS: BP 101/54; PULSE 67; RESP 19; TEMP 36.8; O2SAT 97
[2020-09-22] MEDS: BuSPIRONE 10 mg Tablet 15 MG PO ×2 (08:18→20:10)
[2020-09-22 14:00] VITALS: BP 120/80; PULSE 64; RESP 18; TEMP 36.7; O2SAT 97
--- NOTE | 2020-09-22 15:09 | PC.RESP ---
SMOKING CESSATION INFORMATION SENT TO PATIENT.
[2020-09-22] MEDS: atomoxetine 40 mg Capsule PO (17:00)
--- NOTE | 2020-09-22 17:07 | PM.NPN ---
Subjective NPU Subjective: Interval history: Marina presents today reporting that he has spoken to his and he is not sure that it is completely over. She seems to have some care for their pets and it seems to be something that makes him happy. He reports that he is trying to keep together and obviously wants to be discharged. We agreed we would monitor how he does with the Strattera today and consider discharge in the next 48 hours. He denying that he had problems we discussed the possibility have to ensure safety given the 96-hour hold. Mental Status Exam MSE Comments: This is an overweight white male in hospital scrubs with adequate grooming and eye contact. With significant tattooing on his exposed skin. Mostly cooperative with exam in no acute distress. No abnormal movements except for mild psychomotor retardation. Speech was decreased rate and volume. Mood described as okay okay, affect subdued. Thought process organized. Thought content: Patient denied suicidal or homicidal ideations, there are no delusions reported or noted, he denied auditory or visual hallucinations. Attention and concentration appeared intact and memory was somewhat reliable but none were formally tested. He is alert and oriented x3. Insight and judgment are limited, impulse control is impaired. Vitals/I&O/Wt Last Vital Signs Temp 97.8 F 09/22/20 22:00 Pulse 78 09/22/20 22:00 Resp 16 09/22/20 22:00 BP 102/76 09/22/20 22:00 Pulse Ox 96 09/22/20 22:00 Data NPU : 09/20/20 14:00 09/20/20 14:00 A&P Additional A&P Information (1) Suicidal ideation: (2) Drug-induced psychotic disorder: (3) Nonadherence to medication: (4) Problems related to other legal circumstances: (5) Unspecified episodic mood disorder: (6) ADHD: (7) Anxiety: (8) Polysubstance abuse: Additional A&P Information This is a 35-year-old white male with a long history of ADHD, anxiety and addiction with recent stressor of his leaving him a couple weeks ago and reporting that he has been using alcohol and other drugs as a coping mechanism open to trial of medication. 1. Continue current medication. 2. Continue every 15 minute checks for safety. 3. Encourage individual, group and milieu therapies. 4. Encourage sober living treatment after discharge at the highest level of care to which he is willing to commit. Involuntary Hold Information 96 Hour Hold: 96 Hour Involuntary Admission: Yes 96 Hour Hold Ending Date: 09/26/20 96 Hour Hold Ending Time: 23:03 Attestations NPU Medical Necessity Statement*: Inpatient hospitalization is medically necessary and the clinically appropriate intervention at this time. We will monitor medications and make changes as indicated. Likely length of stay 1-3 days. Coding Level of Care Code Acute Behavioral Geneticist for Rickey Merchant
[2020-09-22 22:00] VITALS: BP 102/76; PULSE 78; RESP 16; TEMP 36.6; O2SAT 96
[2020-09-23 06:00] VITALS: BP 124/78; PULSE 88; RESP 16; TEMP 37.1; O2SAT 99
[2020-09-23] MEDS: BuSPIRONE 10 mg Tablet 15 MG PO (07:49)
[2020-09-23 14:00] VITALS: BP 119/72; PULSE 61; RESP 18; TEMP 36.1; O2SAT 97
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
[2020-09-23 15:59] VITALS: BP 119/72; PULSE 61; RESP 18; TEMP 36.1; O2SAT 97
[2020-09-23] MEDS: atomoxetine 40 mg Capsule PO (16:30)
== END 2020-09-23 17:32 | disposition home or self-care (01) | DRG 897 ==
LOC: ER 14:21 → NP 16:53
PROVIDERS: Admitting Provider Psychiatry & Neurology Psychiatry; Emergency Provider Family Medicine; Visit Provider Psychiatry & Neurology Psychiatry
DX: F19.959 Other psychoactive substance use, unspecified with psychoactive substance-induced psychotic disorder, unspecified (principal); R45.851 Suicidal ideations; F32.9 Major depressive disorder, single episode, unspecified; F41.9 Anxiety disorder, unspecified; F15.10 Other stimulant abuse, uncomplicated; Z81.8 Family history of other mental and behavioral disorders; F90.9 Attention-deficit hyperactivity disorder, unspecified type; F17.210 Nicotine dependence, cigarettes, uncomplicated; Z91.14 Patient's other noncompliance with medication regimen; F39 Unspecified mood [affective] disorder
CPT/HCPCS: 36415; 71045; 80053; 80306; 80307; 81001; 84484; 85025; 93005; 96372; 99285; J2060; J3486